=== PATIENT | female | born 2000 | race Caucasian/White ===

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

== ENCOUNTER 2023-03-20 11:08 | Emergency (ER) | payer SELFPAY ==
--- NOTE | ~2023-03-20 | US_ITS ---
Pelvic ultrasound. Clinical History: Vaginal bleeding Technique: Realtime transabdominal and transvaginal scanning of the pelvis was performed. Color flow Doppler and Doppler spectral analysis were performed. Findings: The uterus is anteverted. The endometrial stripe has a thickness of 4 mm. No focal mass is identified. The right ovary measures 2.9 x 1.0 x 1.2 cm. No significant right ovarian or adnexal mass is seen. The left ovary measures 1.7 x 1.4 x 1.6 cm. No significant left ovarian or adnexal mass is seen. There is no evidence of free fluid in the cul de sac. Impression: Unremarkable pelvic ultrasound. Reviewed, dictated and finalized at location . Impression: Unremarkable pelvic ultrasound.
[2023-03-20 11:10] VITALS: BP 116/67; PULSE 81; RESP 16; TEMP 37.3; O2SAT 100
[2023-03-20 11:29] LABS: Basophils Absolute Auto 0.1 K/mm3 (0.0-0.1); Basophils Percent Auto 0.8 % (0.2-1.2); Eosinophils Absolute Auto 0.2 K/mm3 (0-0.3); Eosinophils Percent Auto 2.4 % (0-4.4); Hematocrit 46.8 % (37.0-47.0); Hemoglobin 15.5 g/dL (12.0-15.0); Immature Granulocyte Absolute 0.02 K/mm3 (0.00-0.031); Immature Granulocyte Percent A 0.2 % (0-0.5); Lymphocytes Absolute Auto 2.67 K/mm3 (0.9-3.2); Lymphocytes Percent Auto 27.4 % (18.3-44.2); Mean Corpuscular HGB Conc 33.1 g/dl (32-36); Mean Corpuscular Hemoglobin 32.4 pg (26-34); Mean Corpuscular Volume 97.9 fl (80-100); Mean Platelet Volume 10.8 fl (7.4-10.4); Monocytes Absolute Auto 0.6 K/mm3 (0.1-0.6); Monocytes Percent Auto 6.2 % (2.6-8.5); Neutrophils Absolute Auto 6.1 K/mm3 (1.3-6.7); Platelet Count Result 179 k/mm3 (150-375); Red Blood Count 4.78 M/mm3 (4.2-5.4); Red Cell Distribution Width 12.1 % (11.5-14.5); White Blood Count 9.7 K/mm3 (4.5-10.0)
[2023-03-20 11:39] LABS: Appearance Urine Slightly Cloudy (Clear); Bilirubin Urine 1+ (Negative); Blood Urine 3+ (Negative); Glucose Urine UA Negative (Negative); Ketones Urine 1+ mg/dL (Negative); Leukocyte Esterase Ur Negative LEU/UL (Negative); Nitrate Urine Negative (Negative); Protein Urine 2+ mg/dL (Negative); Specific Grav Ur >= 1.030 (1.001-1.035)
[2023-03-20 11:43] LABS: Bacteria Urine Rare /hpf; Non Pathogenic Casts 0-2; RBC Urine >100 /hpf (0-2); Squamous Epithelial Cell Urine Moderate /hpf (Few)
[2023-03-20 11:55] LABS: Color Urine Dark Yellow (Yellow)
[2023-03-20 11:56] LABS: Add Urine Microscopic? YES
--- NOTE | 2023-03-20 13:22 | ED.FEMALEGU ---
HPI - Female Genitourinary General Chief complaint: Vaginal Bleeding Stated complaint: vaginal bleeding Time Seen by Provider: 03/20/23 12:57 History of Present Illness HPI Narrative: Patient is a 23-year-old female with vaginal bleeding. Patient states that she used to get the Depo shot and stopped approximately 3-4 months ago. She states that she has had some vaginal bleeding for the last 1.5 months. She notes that it is pretty stable in heaviness and she uses panty liners, using about 10 panty liners a day. She denies any abdominal pain, pelvic pain, trauma. She states that she has no concern for STD and has had no vaginal discharge. She has 1 sexual partner, has regular condom use. She has had 1 prior Pap smear which was normal. She states that today she went to [facility] and asked for an appointment and they referred her here in the emergency department. She denies any dizziness, lightheadedness, chest pain, shortness of breath. She denies any urinary symptoms. Related Data Home Medications Medication Instructions Recorded Confirmed medroxyprogesterone 150 mg/mL mg IM 12/24/20 intramuscular suspension Allergies Allergy/AdvReac Type Severity Reaction Status Date / Time No Known Allergies Allergy Verified 03/20/23 11:10 Review of Systems Review of Systems: All systems reviewed & are unremarkable except as noted in HPI and below PMFSH Past Medical History Medical History No active medical problems Family History Family History Other Diabetes mellitus Social History Social History (Updated 12/24/20 @ 11:59 by Maribel Mancera, JENNIFER) Smoking status: Current every day smoker Tobacco type: e-cigarettes/vaping Alcohol intake: never Exam Narrative: GENERAL: Well-appearing, well-nourished, and in no acute distress. HEAD: Normocephalic, atraumatic. EYES: PERRLA and EOMI. ENT: Nares clear. Mucous membranes moist. NECK: Supple. CHEST: Clear to auscultation. No respiratory distress. HEART: Regular rate and rhythm. Normal peripheral pulses. ABDOMEN: Soft, nontender, nondistended. : deferred EXTREMITIES: Normal range of motion. No edema. SKIN: Warm, dry, no rash. NEURO: No focal deficits. Alert and oriented x3. PSYCH: Normal mood and affect. Course Course Emergency Course: Chart review performed. Patient here with vaginal bleeding x2 months. Triage vitals normal. Bedside test negative. Triage workup reviewed, hemoglobin normal at 15.5, no leukocytosis. Urine rbc's greater than 100, urine white blood cells 11-20, no nitrates, leukocytes, bacteria. Believe this is likely noninfectious in due to the blood in her specimen. Patient seen evaluated, nontoxic appearing. Will do a transvaginal ultrasound to evaluate for any uterine or ovarian abnormalities. Patient is hemodynamically stable with a stable hemoglobin. I did offer a pelvic exam with STD testing, she has no concerns and deferred this exam at this time. Anticipate discharge after ultrasound. Negative pelvic ultrasound. Advised follow up with her OBGYN. The results of pertinent diagnostic studies and exam findings were discussed. The patient?s provisional diagnosis and plan of care were discussed with the patient and present family. The patient and/or present family expressed understanding of the diagnosis and plan. The nurse was instructed to provide written instructions and appropriate follow-up information. The patient understands their need and responsibility to obtain additional follow-up as instructed. The risks of medications administered and prescribed were discussed with the patient and family present. Vital Signs Vital signs: Vital Signs Temperature 99.1 F 03/20/23 11:10 Pulse Rate 81 03/20/23 11:10 Respiratory Rate 16 03/20/23 11:10 Blood Pressure 116/67
== END 2023-03-20 16:01 | disposition home or self-care (01) ==
PROVIDERS: Emergency Medicine; Emergency Provider Student in an Organized Health Care Education/Training Program
DX: N93.8 Other specified abnormal uterine and vaginal bleeding (principal)
CPT/HCPCS: 36415; 76856; 81001; 81025; 85025; 87077; 87086; 87088; 99284

== ENCOUNTER 2023-05-05 12:52 | Emergency (ER) | payer SELFPAY ==
[2023-05-05 13:03] VITALS: BP 112/63; PULSE 118; RESP 20; TEMP 36.6; O2SAT 100
[2023-05-05 15:54] VITALS: BP 106/59; PULSE 87; RESP 18; O2SAT 98
--- NOTE | 2023-05-05 16:21 | ED.EYEPROB ---
HPI - Eye Problem General Chief complaint: Eye Problems Stated complaint: eye swelling Time Seen by Provider: 05/05/23 15:53 History of Present Illness HPI Narrative: patient is a 23-year-old female presenting with right eye swelling. States that she initially thought she had pinkeye as the eye was red and watery. States that she woke up with some crusting. Today the skin around the eye is swollen so she became concerned. States that most of the pain is in the swollen skin underneath her eye. Denies difficulty with EOMI. Does not use contacts. Uses prescription glasses. states difficult to see out of the right eye due to the swelling. Related Data Home Medications Medication Instructions Recorded Confirmed medroxyprogesterone 150 mg/mL mg IM 12/24/20 intramuscular suspension Allergies Allergy/AdvReac Type Severity Reaction Status Date / Time No Known Allergies Allergy Verified 05/05/23 12:55 Review of Systems Review of Systems: All systems reviewed & are unremarkable except as noted in HPI and below PMFSH Past Medical History Medical History No active medical problems Family History Family History Other Diabetes mellitus Social History Social History Smoking status: Current every day smoker Tobacco type: e-cigarettes/vaping Alcohol intake: never Exam Narrative: GENERAL: Well-appearing, In acute distress, pleasant cooperative HEAD: Normocephalic, atraumatic. EYES: PERRLA and EOMI. right eye with periorbital edema, normal conjunctiva, no drainage, no pain with EOMI ENT: Mucous membranes moist. NECK: Supple. CHEST: No respiratory distress. HEART: Regular rate and rhythm. EXTREMITIES: Normal range of motion. SKIN: Warm, dry NEURO: Alert and oriented x3. PSYCH: Normal mood and affect. Course Vital Signs Vital signs: Vital Signs Temperature 97.8 F 05/05/23 13:03 Pulse Rate 118 H 05/05/23 13:03 Respiratory Rate 20 05/05/23 13:03 Blood Pressure 112/63 05/05/23 13:03 Pulse Oximetry 100 05/05/23 13:03 Temperature 97.8 F 05/05/23 13:03 Pulse Rate 87 05/05/23 15:54 Respiratory Rate 18 05/05/23 15:54 Blood Pressure 106/59 L 05/05/23 15:54 Pulse Oximetry 98 05/05/23 15:54 MDM - Eye Problem MDM Narrative Medical decision making narrative: 23-year-old female presenting with painful swelling around her right eye. Vitals are stable. Exam remarkable for the above. Concern for periorbital cellulitis. Visual acuity is intact. Patient given a dose of Bactrim and Augmentin. I do not think this represents orbital cellulitis at this time. Discussed strict return precautions and very close follow-up. Appropriate supportive care discussed. Patient voiced understanding and is agreeable with plan. Discharged in stable condition. Differential Diagnosis Differential diagnosis: Likely conjunctivitis and periorbital cellulitis Medical Records Attestation: I reviewed the patient's medical records. Critical Care Time Critical Care Time Critical Care Time: No Discharge Plan Discharge Clinical Impression: Periorbital cellulitis Patient Disposition: Home, Self-Care Condition: Stable Instructions: Antibiotic Form, Periorbital Cellulitis (ED) Additional Instructions: We are treating you with antibiotics for an infection of the skin around the right eye. Please complete these as prescribed. Please follow-up within 2-3 days with primary care and/or ophthalmology. If your symptoms worsen, you develop difficulty moving your eye, fevers, or other concerning symptoms arise, please return to the ER. [facility] Ophthalmology: [phone] Prescriptions: New sulfamethoxazole-trimethoprim [Bactrim DS] 800-160 mg tablet 1 tablet PO Q12H 7 Days Qty: 14 0RF amoxicill
[2023-05-05] MEDS: AMOXICILLIN/CLAVULANATE K 875-125 MG TAB 1 TABLET PO (16:32)
[2023-05-05] MEDS: SULFAMETHOXAZOLE/TRIMETHOPRIM 800/160 MG DS TABLET 1 TAB PO (16:32)
[2023-05-05] MEDS: ACETAMINOPHEN 500 MG TABLET 1000 MG PO (16:32)
[2023-05-05] MEDS: ONDANSETRON HCL ODT 4 MG TABLET PO (17:18)
== END 2023-05-05 17:40 | disposition home or self-care (01) ==
PROVIDERS: Emergency Provider Emergency Medicine
DX: L03.213 Periorbital cellulitis (principal); F17.290 Nicotine dependence, other tobacco product, uncomplicated
CPT/HCPCS: 99283; A9270

== ENCOUNTER 2024-01-12 10:27 | Emergency (ER) | payer SELFPAY ==
--- NOTE | 2024-01-12 10:36 | ED.FEMALEGU ---
HPI - Female Genitourinary General Chief complaint: Urogenital-Female Stated complaint: UTI Time Seen by Provider: 01/12/24 10:38 Source: patient and RN notes reviewed Mode of arrival: ambulatory Limitations: no limitations History of Present Illness HPI Narrative: 23-year-old female presented for complaint of burning with urination, frequency and urgency over the past few days. Endorses history UTIs visits with similar. Has not taken anything [id number] for symptoms. LMP is 12/19/2023. Denies concern for STD but states she would like testing at this time. Denies hematuria, nausea, vomiting, abdominal pain, flank pain, constipation, diarrhea, vaginal discharge, fevers or chills. Related Data Home Medications Medication Instructions Recorded Confirmed medroxyprogesterone 150 mg/mL 150 mg IM DIRECTED 12/24/20 01/12/24 intramuscular suspension Allergies Allergy/AdvReac Type Severity Reaction Status Date / Time No Known Allergies Allergy Verified 01/12/24 10:34 Review of Systems Review of Systems: CONSTITUTIONAL: Denies body aches, fever, chills, or sweats. CARDIOVASCULAR: Denies chest pain, palpitations, or edema. RESPIRATORY: Denies cough or dyspnea. GASTROINTESTINAL: Denies abdominal pain, nausea, vomiting, or diarrhea. GENITOURINARY: Reports dysuria, frequency, urgency, denies hematuria, flank pain SKIN: Denies rash, itching, or wounds. MUSCULOSKELETAL: Denies back pain or myalgia. [facility] Past Medical History Medical History No active medical problems Family History Family History Other Diabetes mellitus Social History Social History Smoking status: Current every day smoker Tobacco type: e-cigarettes/vaping Alcohol intake: never Comments At time of signature, I have reviewed and agree with nursing past medical, surgical, social and family history unless otherwise noted. Please see nursing chart for further information. There is no relevant family history pertinent to the presenting complaint Exam Narrative: GENERAL: Well-appearing ENT: Mucous membranes pink and moist. NECK: Normal AROM. Supple. CHEST: No respiratory distress. Clear to auscultation. HEART: Regular rate and rhythm. ABDOMEN: Soft, nondistended, normal active bowel sounds. Mild RLQ tender with palpation and right lower stringer machine tender with palpation. SKIN: Warm, dry NEURO: No focal deficits. Alert and oriented x3. Gait steady. PSYCH: Normal affect. Course Course Emergency Course: Patient is aware of diagnosis, understands and agrees to treatment plan. Anticipatory guidance given. Patient agrees to follow-up as directed and is aware of reasons to seek care at the emergency department. Portions of this record may have been created with voice recognition software Level of Care: Express Care Visit Vital Signs Vital signs: Vital Signs Temperature 98.5 F 01/12/24 10:37 Pulse Rate 85 01/12/24 10:37 Respiratory Rate 16 01/12/24 10:37 Blood Pressure 122/63 01/12/24 10:37 Pulse Oximetry 100 01/12/24 10:37 Oxygen Delivery Room Air 01/12/24 10:37 Temperature 98.5 F 01/12/24 10:37 Pulse Rate 85 01/12/24 10:37 Respiratory Rate 16 01/12/24 10:37 Blood Pressure 122/63 01/12/24 10:37 Pulse Oximetry 100 01/12/24 10:37 Oxygen Delivery Room Air 01/12/24 10:37 Reviewed MDM - Female Genitourinary MDM Narrative Medical decision making narrative: Patient presenting with concern for UTI and would like testing for STD though she denies specific concerns. Urine specimen collected for UA, GC, chlamydia, trich. Informed Pt will be contacted w/ results when they become available if they are positive. Discussed with patient that it takes up to 7 days for results of cultures to be released and explained
[2024-01-12 10:37] VITALS: BP 122/63; PULSE 85; RESP 16; TEMP 36.9; O2SAT 100
[2024-01-12 11:04] LABS: EDUAAPPEAR Clear; EDUABILI Negative; EDUABLOOD 1+; EDUACOLOR1 Yellow; EDUAGLUCOSE Negative; EDUAKETONE 2+; EDUALEUKO Negative; EDUANITRATE Negative; EDUAPROTEIN 1+
[2024-01-12 11:06] LABS: BEDSIDEPREGUCG Negative
[2024-01-13 18:52] LABS: Trichomonas Vag PCR NOT DETECTED (NOT DETECTE)
[2024-01-13 20:10] LABS: Chlamydia trachomatis NOT DETECTED (NOT DETECTE); Neisseria gonorrhoeae PCR NOT DETECTED (NOT DETECTE)
== END 2024-01-12 11:10 | disposition home or self-care (01) ==
PROVIDERS: Emergency Provider Nurse Practitioner Family
DX: R30.0 Dysuria (principal); B96.89 Other specified bacterial agents as the cause of diseases classified elsewhere; F17.290 Nicotine dependence, other tobacco product, uncomplicated
CPT/HCPCS: 81003; 81025; 87077; 87086; 87088; 87186; 87491; 87591; 87661; 99214; G0463

== ENCOUNTER 2024-02-19 08:36 | Emergency (ER) | payer SELFPAY ==
[2024-02-19 08:41] VITALS: BP 121/73; PULSE 88; RESP 16; TEMP 36.7; O2SAT 100
--- NOTE | 2024-02-19 08:45 | ED.EAR ---
HPI - Ear Problem General Chief complaint: Ear Stated complaint: RT Ear Pain Time Seen by Provider: 02/19/24 08:44 Source: patient and RN notes reviewed Mode of arrival: ambulatory Limitations: no limitations History of Present Illness HPI Narrative: 23-year-old female presents concern for right ear pain for 1 month, worsening over the past week. She denies upper respiratory symptoms. She reports she used ear wax removal kit yesterday without relief. MD Complaint: ear pain Related Data Home Medications Medication Instructions Recorded Confirmed No Home Medications 02/19/24 02/19/24 Allergies Allergy/AdvReac Type Severity Reaction Status Date / Time No Known Allergies Allergy Verified 02/19/24 08:38 Review of Systems Review of Systems: CONSTITUTIONAL: Denies malaise, chills, sweats, or fever. EYES: Denies visual changes, redness, or discharge. ENT: Denies rhinorrhea, congestion, sinus pain, and sore throat. Reports right ear pain CARDIOVASCULAR: Denies chest pain, palpitations, or edema. RESPIRATORY: Denies cough. Denies dyspnea. GASTROINTESTINAL: Denies abdominal pain, nausea, vomiting, diarrhea SKIN: Denies rash or itching. MUSCULOSKELETAL: Denies myalgia. NEUROLOGIC: Denies headache. All systems reviewed & are unremarkable except as noted in HPI and below PMFSH Past Medical History Medical History No active medical problems Family History Family History Other Diabetes mellitus Social History Social History Smoking status: Current every day smoker Tobacco type: e-cigarettes/vaping Alcohol intake: never Comments At time of signature, agree with nursing past medical, surgical, social and family history. There is no relevant family history pertinent to the presenting complaint Exam Narrative: GENERAL: Well-appearing, well-nourished, and in no acute distress. HEAD: Normocephalic EYES: PERRLA, conjunctivae clear ENT: Nares clear. Mucous membranes moist. TM pearly chavez with sharp light reflex on the left, not visible on the right due to excess cerumen; right tragal tenderness. Oropharynx not erythematous without lesions. Tonsils not enlarged and without exudate, no drooling, no hoarseness, no trismus, uvula midline. NECK: Supple. No lymphadenopathy CHEST: Clear to auscultation, breath sounds equal. No wheezing, rhonchi, rales, or stridor. No respiratory distress, speaks in full sentences. HEART: Regular rate and rhythm. No murmur heard. SKIN: Warm, dry, no rash. NEURO: Alert and oriented x3. PSYCH: Normal mood and affect Course Course Emergency Course: Patient is aware of diagnosis, understands and agrees to treatment plan. Anticipatory guidance given. Patient agrees to follow-up as directed and is aware of reasons to seek care at the emergency department. Portions of this record may have been created with voice recognition software Level of Care: Express Care Visit Vital Signs Vital signs: Vital Signs Temperature 98.1 F 02/19/24 08:41 Pulse Rate 88 02/19/24 08:41 Respiratory Rate 16 02/19/24 08:41 Blood Pressure 121/73 02/19/24 08:41 Pulse Oximetry 100 02/19/24 08:41 Oxygen Delivery Room Air 02/19/24 08:41 Temperature 98.1 F 02/19/24 08:41 Pulse Rate 88 02/19/24 08:41 Respiratory Rate 16 02/19/24 08:41 Blood Pressure 121/73 02/19/24 08:41 Pulse Oximetry 100 02/19/24 08:41 Oxygen Delivery Room Air 02/19/24 08:41 Reviewed. Procedures Ear Wax Removal Right Ear: Ear Wax Removal Date: 02/19/24 Ear Wax Removal Time: 08:56 Cerumenolytic Used: other (hydrogen peroxide) Results: Re-examined: cerumen removed completely TM Examination: TM(s) intact, normal appearance Ear Canal Exam: atraumatic Patient Tolerated Procedure: well
== END 2024-02-19 10:13 | disposition home or self-care (01) ==
PROVIDERS: Emergency Provider Nurse Practitioner
DX: H61.21 Impacted cerumen, right ear (principal); F17.290 Nicotine dependence, other tobacco product, uncomplicated
CPT/HCPCS: 69210; 99212; A9270; G0463

== ENCOUNTER 2024-08-23 17:48 | Emergency (ER) | payer OTHER, SELFPAY ==
[2024-08-23 17:58] VITALS: BP 138/65; PULSE 99; RESP 20; TEMP 37.5; O2SAT 100
--- NOTE | 2024-08-23 18:04 | ED.URI ---
HPI - URI/Sore Throat General Chief Complaint: Upper Respiratory Infection Stated Complaint: Sore Throat Time Seen by Provider: 08/23/24 18:04 Source: patient Mode of arrival: ambulatory Limitations: no limitations History of Present Illness HPI Narrative: 24-year-old female presents with complaint of sore throat, congestion, cough for 2-3 days. Afebrile. Cough is mild. Taking Tylenol to treat pain. Patient concern for strep throat. No chest pain or shortness of breath. Denies nausea vomiting diarrhea. All systems reviewed and negative except as noted above. Related Data Home Medications ?Medication ?Instructions ?Recorded ?Confirmed ?Last Taken ?Type No Home Medications 02/19/24 02/19/24 Unknown History Allergies Allergy/AdvReac Type Severity Reaction Status Date / Time No Known Allergies Allergy Verified 08/23/24 18:04 Review of Systems Review of Systems: CONSTITUTIONAL: Denies fever, chills, or sweats. EYES: Denies visual changes, redness, or discharge. ENT: Reports rhinorrhea, congestion, sore throat. Denies otalgia. CARDIOVASCULAR: Denies chest pain, palpitations, or edema. RESPIRATORY: reports cough . Denies dyspnea. GASTROINTESTINAL: Denies abdominal pain, nausea, vomiting, or diarrhea. GENITOURINARY: Denies dysuria or hematuria. SKIN: Denies rash or itching. MUSCULOSKELETAL: Denies back pain, joint pain, or myalgia. NEUROLOGIC: Denies headache, numbness, or weakness. PSYCHIATRIC: Denies anxiety or depression. All other systems reviewed are negative, except as documented in HPI. PMFSH Past Medical History Medical History No active medical problems Family History Family History Other Diabetes mellitus Social History Social History Smoking status: Current every day smoker Tobacco type: e-cigarettes/vaping Alcohol intake: never Comments At time of signature, agree with nursing past medical, surgical, social and family history. There is no relevant family history pertinent to the presenting complaint. Exam Narrative: GENERAL: This is a well-nourished, well-developed patient, in no apparent distress. HEAD: normocephalic, atraumatic. EYES: PERRL. Sclera clear/white. Vision is grossly intact. EARS: External ears normal, auditory canals clear and without drainage, TMs normal without perforation. Hearing grossly intact. NOSE: External nose normal with clear nasal drainage THROAT: Mucous membranes moist, posterior pharynx clear. NECK: Neck supple, non-tender without lymphadenopathy, masses or thyromegaly. CARDIOVASCULAR: Regular rate and rhythm without murmurs, gallops, or rubs. RESPIRATORY: Clear to auscultation. Breath sounds equal bilaterally. No wheezes, rales, or rhonchi. SKIN: warm, Dry, intact with no suspicious lesions or rash, good texture and turgor. NEURO: awake, alert, and oriented to person, place and time. There were no obvious focal neurologic abnormalities. EXTREMITIES: No joint tenderness, effusion, or edema noted. Course Course Level of Care: Express Care Visit Vital Signs Vital signs: Vital Signs Temperature 37.5 C 08/23/24 17:58 Pulse Rate 99 08/23/24 17:58 Respiratory Rate 20 08/23/24 17:58 Blood Pressure 138/65 08/23/24 17:58 Pulse Oximetry 100 08/23/24 17:58 Oxygen Delivery Room Air 08/23/24 17:58 Temperature 37.5 C 08/23/24 17:58 Pulse Rate 99 08/23/24 17:58 Respiratory Rate 20 08/23/24 17:58 Blood Pressure 138/65 08/23/24 17:58 Pulse Oximetry 100 08/23/24 17:58 Oxygen Delivery Room Air 08/23/24 17:58 reviewed MDM - URI/Sore Throat MDM Narrative Medical decision making narrative: negative COVID, strep and influenza. Patient is well-appearing. Lungs clear to auscultation. Recommend [id number] medications to treat symptoms. Please be advised this is a medical document. It is intended for [id number] communication. It is written in medical language and may contain unfamiliar abbreviations or verbiage. Medical documents are intended to carry relevant information, facts as evident, and the clinical opinion of the practitioner at the time of the encounter. This report may have been done utilizing a voice recognition system. Attempts have been made to correct errors. However, there may be uncorrected grammatical, spelling, and recognition errors present. The file time of this note does not necessarily represent the time of service. Differential Diagnosis Differential diagnosis: Likely upper respiratory infection, sinusitis and viral infection Discharge Plan Discharge Clinical Impression: Upper respiratory infection, viral Patient Disposition: Home, Self-Care Condition: Stable Instructions: Upper Respiratory Infection (ED) Additional Instructions: your COVID, influenza strep test were negative today. Your symptoms are viral and may last 10-14 days. taking [id number] medication to treat her symptoms such as DayQuil NyQuil cold and Sinus. Drink plenty water and rest. See your doctor if symptoms are not improving. Patient Language: Greek Prescriptions: No Action No Home Medications Follow-up/Referrals: PHYSICIAN,[facility] [Primary Care Provider] - Time of Disposition: 18:29
[2024-08-23 18:47] LABS: EDCOVIDSCREEN Negative (Negative); EDINFLUASCREEN Negative (Negative); EDINFLUBSCREEN Negative (Negative); EDSTREPNEGPOS1 Negative (Negative)
== END 2024-08-23 18:41 | disposition home or self-care (01) ==
PROVIDERS: Emergency Provider Nurse Practitioner Family
DX: J06.9 Acute upper respiratory infection, unspecified (principal); Z20.822 Contact with and (suspected) exposure to COVID-19; F17.290 Nicotine dependence, other tobacco product, uncomplicated
CPT/HCPCS: 87081; 87426; 87804; 87880; 99213; G0463

== ENCOUNTER 2024-11-19 10:58 | Emergency (ER) | payer OTHER, SELFPAY ==
[2024-11-19 11:05] VITALS: BP 115/64; PULSE 83; RESP 20; TEMP 36.7; O2SAT 100
[2024-11-19 11:12] LABS: EDUAAPPEAR Clear; EDUABILI Negative (Negative); EDUABLOOD Negative (Negative); EDUACOLOR1 Yellow; EDUAGLUCOSE Negative (Negative); EDUAKETONE Negative (Negative); EDUALEUKO 1+ (Negative); EDUANITRATE Negative (Negative); EDUAPROTEIN Negative (Negative); EDUASPGRAVITY 1.015; EDUAUROBILI 0.2
--- NOTE | 2024-11-19 11:19 | ED.FEMALEGU ---
HPI - Female Genitourinary General Chief complaint: Urogenital-Female Stated complaint: UTI Time Seen by Provider: 11/19/24 11:14 Source: patient and RN notes reviewed Mode of arrival: ambulatory Limitations: no limitations History of Present Illness HPI Narrative: Patient presents today with 3 day history of dysuria, frequency, cloudy urine, mild low back pain. Denies hematuria or fever. She has been taking Tylenol and ibuprofen with mild relief. No recent antibiotic use. History of UTI. Related Data Allergies Allergy/AdvReac Type Severity Reaction Status Date / Time No Known Allergies Allergy Verified 11/19/24 11:09 Review of Systems Review of Systems: CONSTITUTIONAL: Denies body aches, fever, chills, or sweats. EYES: Denies visual changes, redness, or discharge. ENT: Denies rhinorrhea, congestion, sore throat, or otalgia. CARDIOVASCULAR: Denies chest pain, palpitations, or edema. RESPIRATORY: Denies cough or dyspnea. GASTROINTESTINAL: Denies abdominal pain, nausea, vomiting, or diarrhea. GENITOURINARY: + dysuria frequency, cloudy urine SKIN: Denies rash, itching, or wounds. MUSCULOSKELETAL: Denies joint pain, or myalgia.+ low back pain NEUROLOGIC: Denies headache, numbness, tingling, or weakness. PSYCH: Denies depression or anxiety. PMFSH Past Medical History Medical History (Reviewed 11/19/24 @ 11:20 by Summer Mcdonald, [facility], ) No active medical problems Family History Family History (Reviewed 11/19/24 @ 11:20 by Summer Mcdonald, [facility], ) Other Diabetes mellitus Social History Social History (Reviewed 11/19/24 @ 11:20 by Summer Mcdonald, [facility], ) Smoking status: Current every day smoker Tobacco type: e-cigarettes/vaping Alcohol intake: never Comments At time of signature, I have reviewed and agree with nursing past medical, surgical, social and family history unless otherwise noted. Please see nursing chart for further information. There is no relevant family history pertinent to the presenting complaint Exam Narrative: GENERAL: Well-appearing, well-nourished, and in no acute distress. HEAD: Normocephalic, atraumatic. EYES: EOMI. No redness or drainage. Conjunctivae normal. ENT: Mucous membranes pink and moist. NECK: Normal AROM. CHEST: No respiratory distress. Clear to auscultation. HEART: Regular rate and rhythm. No murmur appreciated. ABDOMEN: Soft, nontender, nondistended, normal active bowel sounds. -CVAT MUSCULOSKELETAL: No bony tenderness. EXTREMITIES: Normal range of motion. No edema. SKIN: Warm, dry, no rash. Capillary refill normal. Normal skin turgor. NEURO: No focal deficits. Alert and oriented x3. Gait steady. PSYCH: Normal affect. No signs of depression or anxiety. Course Course Level of Care: Express Care Visit Vital Signs Vital signs: Vital Signs Temperature 98.1 F 11/19/24 11:05 Pulse Rate 83 11/19/24 11:05 Respiratory Rate 20 11/19/24 11:05 Blood Pressure 115/64 11/19/24 11:05 Pulse Oximetry 100 11/19/24 11:05 Oxygen Delivery Room Air 11/19/24 11:05 Temperature 98.1 F 11/19/24 11:05 Pulse Rate 83 11/19/24 11:05 Respiratory Rate 20 11/19/24 11:05 Blood Pressure 115/64 11/19/24 11:05 Pulse Oximetry 100 11/19/24 11:05 Oxygen Delivery Room Air 11/19/24 11:05 Reviewed MDM - Female Genitourinary MDM Narrative Medical decision making narrative: Urinalysis shows 1+ leukocyte esterase. Culture pending. Patient will be started on a course of Augmentin for presumed UTI. Anticipatory guidance given. Differential Diagnosis Differential diagnosis: Likely urinary tract infection, vaginitis, cystitis and other (Pyelonephritis) Lab Data Attestation: I reviewed the patient's lab results. Labs: Lab Results 11/19/24 Range/Units 11:07 POC Urine Color Yellow POC Urine Clarity Clear POC Urine pH 7.0 POC Ur Specif [place] 1.015 POC Urine Protein Negative (Negative) POC Ur Glucose (UA) Negative (Negative) POC Urine Ketones Negative (Negative) POC Urine Blood Negative (Negative) POC Urine Nitrite Negative (Negative) POC Urine Bilirubin Negative (Negative) POC Urine Urobilinogen 0.2 POC U Leukocyte Esteras 1+ (Negative) Critical Care Time Critical Care Time Critical Care Time: No Discharge Plan Discharge Clinical Impression: Urinary tract infection Qualifiers: Urinary tract infection type: acute cystitis Hematuria presence: without hematuria Qualified Code(s): N30.00 - Acute cystitis without hematuria Patient Disposition: Home Condition: Stable Instructions: Antibiotic Form, Urinary Tract Infection in Women (DC) Additional Instructions: Your urine shows infection today. Take Augmentin as prescribed until gone. Your urine will be sent of for a culture to identify what type of bacteria is causing your infection. If the culture shows that your medication will not get rid of your infection, you will be notified and a new antibiotic will be called in for you. If your symptoms worsen to include fever, sweats, chills, nausea, vomiting, severe abdominal or back pain, please go to the ER for further evaluation. Patient Language: Serbian Prescriptions: New amoxicillin-pot clavulanate 875-125 mg tablet 1 tablet PO Q12H 7 Days Qty: 14 0RF Follow-up/Referrals: PHYSICIAN,[facility] OPERATOR [Primary Care Provider] - Stand Alone Forms: Work/School Release IP Time of Disposition: 11:22
== END 2024-11-19 11:26 | disposition home or self-care (01) ==
PROVIDERS: Emergency Provider Nurse Practitioner
DX: N30.00 Acute cystitis without hematuria (principal); F17.290 Nicotine dependence, other tobacco product, uncomplicated
CPT/HCPCS: 81003; 87077; 87086; 87186; 99213; G0463

== ENCOUNTER 2024-12-19 09:09 | Emergency (ER) | payer OTHER, SELFPAY ==
--- OUTSIDE RECORDS SUMMARY | 2024-12-19 09:11 | XMS_ITS | Clinical Summary ---
Author Organization [facility] Address [address] [place] [address] Care Team Providers Care Tourist Information Officer Name Role Phone Cydney Perez MD Primary Care Provider [phone] [phone] Allergies No known active allergies Medications cyclobenzaprine (FLEXERIL) 10 mg tablet Take 1 tablet (10 mg total) by mouth 2 (two) times a day as needed for muscle spasms 20 tablet 09/30/2024 Active ibuprofen (ADVIL,MOTRIN) 800 mg tablet Take 1 tablet (800 mg total) by mouth 3 (three) times a day 21 tablet 09/30/2024 Active Active Problems Problem Noted Date Diagnosed Date Family history of type 1 diabetes mellitus 10/16 Assessment & Plan (10/16/2024 8:54 PM CDT): Type 1 diabetes may contribute to inability to gain weight. Presentation in young adulthood less common but can not be ruled out. Check A1c. 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 No red flag symptoms including acute neurological deficit, changes in vision, or syncope. - Continue Tylenol p.r.n. - Maintain adequate oral hydration - Gradually decrease caffeine consumption, maintain steady state Low weight 10/16/2024 Assessment & Plan (10/16/2024 8:52 PM CDT): BMI 18, chronic. No recent weight loss. Patient denies intentionally restricting food, although she does endorse missed meals attributed to job. Also endorses history of type 1 diabetes in grandmother. - Check TSH, A1c, CBC, CMP - Patient counseled on eating 3 balanced meals daily with snacks Abnormal imaging of thyroid 10/16/2024 Assessment & Plan (10/16/2024 8:50 PM CDT): Incidental finding of heterogeneous thyroid on cervical spine CT. Recommend dedicated thyroid ultrasound for further evaluation. Patient does endorse chronic difficulty gaining weight, however denies other systemic symptoms of thyroid abnormalities including fatigue, GI distress, palpitations, and hair loss. - Thyroid ultrasound - TSH with reflex Marijuana use 10/16/2024 Assessment & Plan (10/16/2024 8:48 PM CDT): Patient endorses regular use. - Counseled on risks of smoking marijuana including lung damage, hypoxia, cognitive impairment Vaping nicotine dependence, non-tobacco product 10/16/2024 Assessment & Plan (10/16/2024 8:49 PM CDT): Trying to cut back. Endorses habitual use more than physical dependence. - Counseled on vaping cessation, can consider adjunct therapy for persistent symptoms Encounters Date Type Department Care Team Description 10/20/2024 Results Follow-Up [facility] Primary Care at [address] [place] [phone] Sonia Simmons MA Thyroid Function [place], CBC with auto differential, Comprehensive metabolic panel, Additional followed-up results: 2 10/16/2024 11:30 AM CDT Lab [address] Abnormal imaging of thyroid; Low weight 10/16/2024 10:30 AM CDT Office Visit [facility] Residency Clinic at [address] [place] [phone] Cydney Perez MD Abnormal imaging of thyroid (Primary Dx); Low weight; Episodic tension-type headache, not intractable; Family history of type 1 diabetes mellitus; Vaping nicotine dependence, non-tobacco product; Marijuana use 10/16/2024 Orders Only [facility] Residency Clinic at [address] [place] [address] Cydney Perez MD Abnormal imaging of thyroid (Primary Dx) 10/16/2024 Orders Only [facility] Residency Clinic at [address] [place] [address] Cydney Perez MD Abnormal imaging of thyroid (Primary Dx) 09/30/2024 1:05 PM CDT - 09/30/2024 2:55 PM CDT Emergency [facility] Emergency Department [address] [place] [address] [id number] Cervical strain, acute, initial encounter (Primary Dx); Abnormal imaging of thyroid Discharge Disposition: Discharge to home or self care from Last 3 Months Immunizations Immunization Administration Dates Next Due DTaP 10/01/2006 DTaP, Unspecified 11/30/2004,04/01/2002,01/09/20 02,2001 Hep A, Ped Unspecified 11/14/2006 Hep A, Unspecified 11/30/2004 Hep B, Unspecified 01/08/2002,2001, 001 HiB 04/01/2002,2001 IPV 10/01/2006 MMR 10/01/2006,11/30/2004 Meningococcal MCV4P (Menactra) 01/01/2013 Pneumococcal, Unspecified 11/14/2006,01/08/2002, 2001 Polio, Unspecified 04/01/2002,01/08/2002, 001 Tdap 01/01/2013 Varicella 10/01/2006,04/01/2002 Social History Tobacco Use Types Packs/Day Years Used Date Smoking Tobacco: Every Day Vaping Tobacco Cessation:Ready to Q uit: Not Asked; Counseling Given: Not Answered AUDIT-C Answer Date Recorded Q1: How often do you have a drink containing alcohol? Never 10/16/2024 Q2: How many drinks containi ng alcohol do you have on a typical day when you are drinking? Patient does not drink Q3: How often do you have si x or more drinks on one occasion? Never 10/16/2024 PHQ-2 Answer Date Recorded PHQ-2 Total Score (If total score is 3 or more points, staff should administer the PHQ-9) 0 10/16/2024 Personal Safety Answer Date Recorded Have you ever been in or are you currently in a harmful physical or emotional relationship or is someone making you feel afraid or unsafe? 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[employer] Gender Identity Not on file Sexual Orientation Not on file Obstetrics History Last Filed Vital Signs Vital Sign Reading Time Taken Comments Blood Pressure 98/62 10/16/2024 10:50 AM CDT Pulse 84 10/16/2024 10:50 AM CDT Temperature 36.8 C (98.2 F) 09/30/2024 12:57 PM CDT Respiratory Rate 16 10/16/2024 10:50 AM CDT Oxygen Saturation 98% 10/16/2024 10:50 AM CDT Inhaled Oxygen Concentration - - Weight 43.2 kg (95 lb 3.2 oz) 10/16/2024 10:50 A M CDT Height 154.9 cm (5' 0.98) 10/16/2024 10:50 AM C DT Body Mass Index 18 10/16/2024 10:50 AM CDT Plan of Treatment Health Maintenance Due Date Last Done Comments Cervical Cancer Screening 2001 Hepatitis C Screening 2001 HPV Vaccines (1 - 3-dose series) 2016 Meningococcal B Vaccine (1 o f 2 - Standard) 2017 Regular Well Visit/Exam 18-64 2019 Pneumococcal vaccine <65 (1 of 2 - PCV) 2020 11/14/2006, 01/08/2002, 2001 DTaP/Tdap/Td Vaccine (7 - Td or Tdap) 01/01/2023 01/01/2013, 10/01/2006, 11/30/2004, Additional history exists Influenza Vaccine (Season Ended) 2025 Depression Screening 10/16/2025 10/16/2024 Hepatitis B Screening Completed 01/08/2002 , 2001, 2001 Varicella Vaccines Completed 10/01/2006, 04/01/2002 Procedures Procedure Name Priority Date/Time Associated Diagnosis Comments EGFR Routine 10/16/2024 11:31 AM CDT Low weight DIFFERENTIAL AUTO Routine 10/16/2024 11: 31 AM CDT Low weight COMPREHENSIVE METABOLIC PANEL Routine 10/16/2024 11:31 AM CDT Low weight CBC WITH AUTO DIFFERENTIAL Routine 10/16/2024 11:31 AM CDT Low weight THYROID FUNCTION CASCADE Routine 10/16/2024 11:31 AM CDT Abnormal imaging of thyroid Low weight CT CERVICAL SPINE WO CONTRAST ED 09/30/2024 1:32 PM CDT from Last 3 Months Results * eGFR (10/16/2024 11:31 AM CDT) eGFR >90 >=60 mL/min/1. 73 m2 Comment: Interpretive Data Reference Interval Normal >/= 90 mL/min/1.73m2 Mildly decreased* 60 - 89 mL/min/1.73m2 Mildly to moderately decreased 45 - 59 mL/min/1.73m2 Moderately to severely decreased 30 - 44 mL/min/1.73m2 Severely decreased 15 - 29 mL/min/1.73m2 Kidney Failure < 15 mL/min/1.73m2 *Relative to young adult level Estimated glomerular filtration rate is determined by the 2020 CKD-EPI equation recommended by the National Kidney Foundation (A Unifying Approach to GFR Estimation: Recommendations of the NKF-ASK Task Force on Reassessing the Inclusion of Race in Diagnosing Kidney Disease, JASN 2020). The CKD-EPI equation should not be used for patients with unstable renal function and has not been validated in children and those over 70. Current interpretive data was last reviewed 2021. Blood 10/16/2024 11:3 1 AM CDT 10/16/2024 1:11 PM CDT us Cydney Perez MD LAB BLOOD ORDERABLES Sharri hank Result MAGALIE ARNOLD ([place]) 1 [facility] Department [place] [address] * (ABNORMAL) Differential, auto (10/16/2024 11:31 AM CDT) Neutrophil abs 7.09(H) 1.50 - 6.50 K/cumm Imm gran abs 0.03 0.00 - 0.10 K/cumm [facility] ([place]) Lymphocyte abs 2.76 0.80 - 3.30 K/cumm [facility] ([place]) Monocyte abs 0.77 0.20 - 0.80 K/cumm [facility] ([place]) Eosinophil abs 0.13 0.00 - 0.50 K/cumm [facility] ([place]) Basophil abs 0.09 0.00 - 0.10 K/cumm [facility] ([place]) Neutrophil pct 65.2 % [facility] ([place]) Comment: Interpretive Data Percent cell count reference ranges are not reported, since discordance with absolute values may lead to misinterpretation of CBC data. Current Interpretive Data was last revised on 2017. Imm gran pct 0.3 % [facility] ([place]) Comment: Interpretive Data Percent cell count reference ranges are not reported, since discordance with absolute values may lead to misinterpretation of CBC data. Current Interpretive Data was last revised on 2017. Lymphocyte pct 25.4 % [facility] ([place]) Comment: Interpretive Data Percent cell count reference ranges are not reported, since discordance with absolute values may lead to misinterpretation of CBC data. Current Interpretive Data was last revised on 2017. Monocyte pct 7.1 % [facility] ([place]) Comment: Interpretive Data Percent cell count reference ranges are not reported, since discordance with absolute values may lead to misinterpretation of CBC data. Current Interpretive Data was last revised on 2017. Eosinophil pct 1.2 % [facility] ([place]) Comment: Interpretive Data Percent cell count reference ranges are not reported, since discordance with absolute values may lead to misinterpretation of CBC data. Current Interpretive Data was last revised on 2017. Basophil pct 0.8 % [facility] ([place]) Comment: Interpretive Data Percent cell count reference ranges are not reported, since discordance with absolute values may lead to misinterpretation of CBC data. Current Interpretive Data was last revised on 2017. Blood 10/16/2024 11:3 1 AM CDT 10/16/2024 1:11 PM CDT Cydney Perez MD LAB BLOOD ORDERABLES Sharri l Result Performing Organization Address City/[facility]/ZIP Co de Phone Number MAGALIE ARNOLD ([place]) 1 [facility] [place] [address] * Thyroid Function [place] (10/16/2024 11:31 AM CDT) Pathologist [facility] TSH 0.90 0.30 - 4.20 mcIUnit/mL Blood 10/16/2024 11:3 1 AM CDT 10/16/2024 1:11 PM CDT Cydney Perez MD LAB BLOOD ORDERABLES Sharri l Result Performing Organization Address City/[facility] Co de Phone Number MAGALIE ARNOLD ([place]) 1 [facility] [employer] [place] [address] * (ABNORMAL) CBC with auto differential (10/16/2024 11:31 AM CDT) WBC 10.87(H) 3.80 - 9.90 K/cumm Hgb 15.5 11.9 - 15.5 g/dL [facility] Hct 45.8(H) 35.6 - 45.5 % [facility] ([place]) Plt 205 150 - 400 K/cumm [facility] ([place]) MPV 10.8 9.1 - 12.3 fL [facility] ([place]) RBC 4.71 3.90 - 5.20 M/cumm [facility] ([place]) MCV 97.2(H) 81.3 - 96.4 fL [facility] ([place]) MCH 32.9 27.1 - 33.3 pg [facility] ([place]) MCHC 33.8 32.3 - 35.7 g/dL [facility] ([place]) RDW CV 12.6 11.1 - 14.9 % [facility] ([place]) RDW SD 45.4 35.7 - 48.1 fL [facility] NRBC abs 0.00 0.00 - 0.01 K/cumm [facility] ([place]) Blood 10/16/2024 11:3 1 AM CDT 10/16/2024 1:11 PM CDT us Cydney Perez MD LAB BLOOD ORDERABLES Sharri l Result [facility] ([place]) 1 [facility] Department [place] [address] * (ABNORMAL) Comprehensive metabolic panel (10/16/2024 11:31 AM CDT) Sodium 138 135 - 145 mmol/L Potassium, pl 3.8 3.3 - 4.9 mmol/L [facility] Chloride 99 97 - 110 mmol/L [facility]) CO2 27 22 - 32 mmol/L [facility] ([place]) Anion gap 12 2 - 15 mmol/L [facility] ([place]) BUN 11 6 - 25 mg/dL [facility] Creatinine 0.59(L) 0.60 - 1.10 mg/dL [facility] Glucose 76 70 - 199 mg/dL [facility] Comment: Interpretive Data Fasting glucose >/= 126 mg/dl is diagnostic for diabetes. Fasting is defined as no caloric intake for at least 8 hours. Fasting glucose between 100 mg/dl to 125 mg/dl is diagnostic of prediabetes. In a patient with classic symptoms of hyperglycemia or hyperglycemic crisis, a random glucose >/= 200 mg/dl is diagnostic for diabetes. In the absence of unequivocal hyperglycemia, results should be confirmed by repeat testing. The classification and Diagnosis of Diabetes Diabetes Care 2021; 46: S19-S40. Current interpretive data was last revised 2022. Calcium 9.6 8.5 - 10.3 mg/dL [facility] ([place]) Bilirubin, total 0.4 0.1 - 1.2 mg/dL [facility] ([place]) Protein, pl 7.4 6.5 - 8.5 g/dL [facility] ([place]) Albumin 4.6 3.5 - 5.0 g/dL [facility] ([place]) Alk phos 47 40 - 130 Units/L [facility] ([place]) ALT 15 7 - 45 Units/L [facility] ([place]) AST 30 10 - 45 Units/L [facility] ([place]) Blood 10/16/2024 11:3 1 AM CDT 10/16/2024 1:11 PM CDT us Cydney Perez MD LAB BLOOD ORDERABLES Sharri mckinney Result [facility] ([place]) 1 [facility] Department [place] [address] * CT Cervical Spine WO Contrast (09/30/2024 1:32 PM CDT) Anatomical Region Laterality Modality Spine N/A Computed Tomogra phy 09/30/2024 2:37 PM CDT Narrative 09/30/2024 2:38 PM CDT EXAM DESCRIPTION: CT CERVICAL SPINE WO CONTRAST REASON FOR STUDY: neck pain after fall c/o neck pain that started 2 days ago after tripping over dog TECHNIQUE: Axial images through the cervical spine with sagittal and coronal reformatted images. Automated exposure control was used as a dose optimization technique for this examination. COMPARISON: None FINDINGS: There is no definite evidence of acute fracture or subluxation involving the cervical spine. There is mild reversal of the normal cervical lordotic curvature, which may be related to muscle spasms. There is minimal anterolisthesis of C2 on C3 and C3 on C4, which is likely related to age-related ligamentous laxity. The bilateral bony neural foramina are grossly patent. The atlantoaxial and craniocervical intervals are grossly well maintained. There is a mildly heterogeneous appearance of the thyroid gland. The remainder of the visualized paravertebral soft tissues are grossly unremarkable. There is mild biapical pleural thickening and scarring involving the visualized lung apices. IMPRESSION: No definite evidence of acute fracture or subluxation involving the cervical spine. Mildly heterogeneous appearance of the thyroid gland, which is incompletely evaluated by CT technique. This may be further evaluated with nonemergent thyroid ultrasound as clinically indicated.. THIS IS AN ELECTRONICALLY VERIFIED FINAL REPORT 09/30/2024 2:38 PM - Electronically signed by Mala Ayers D.O. PS: PS Report ID: [id number] Reading Location: [id number] Procedure Note Mala Ayers, DO - 09/30/2024 EXAM DESCRIPTION: CT CERVICAL SPINE WO CONTRAST REASON FOR STUDY: neck pain after fall c/o neck pain that started 2 days ago after tripping over dog TECHNIQUE: Axial images through the cervical spine with sagittal andcoronal reformatted images. Automated exposure control was used as a doseoptimization technique for this examination. COMPARISON: None FINDINGS: There is no definite evidence of acute fracture or subluxation involvingthe cervical spine. There is mild reversal of the normal cervical lordotic curvature, which may be related to muscle spasms. There is minimal anterolisthesis of C2 on C3 and C3 on C4, which is likely related to age-related ligamentous laxity. The bilateral bony neural foramina are grossly patent. The atlantoaxial and craniocervical intervals are grossly well maintained. There is a mildly heterogeneous appearance of thethyroid gland. The remainder of the visualized paravertebral soft tissues aregrossly unremarkable. There is mild biapical pleural thickening and scarring involving the visualized lung apices. IMPRESSION: No definite evidence of acute fracture or subluxation involving thecervical spine. Mildly heterogeneous appearance of the thyroid gland, which isincompletely evaluated by CT technique. This may be further evaluated with nonemergent thyroid ultrasound as clinically indicated.. THIS IS AN ELECTRONICALLY VERIFIED FINAL REPORT 09/30/2024 2:38 PM - Electronically signed by Mala Ayers D.O. PS: PS Report ID: [id number] Reading Location: [id number] Maude VARGAS IMG CT PROCEDURES Sharri mckinney Result from Last 3 Months Insurance [facility] Care Teams Tourist Information Officer Relationship Specialty Start Date End Date Cydney Perez MD 2 [facility] [address] [address] PCP - General Family Medicine 10/16/24
--- OUTSIDE RECORDS SUMMARY | 2024-12-19 09:11 | XMS_ITS | Encounter Summary ---
Author Organization [facility] Healthcare Address [address] [place] [address] Care Team Providers Care Junior Php Developer Name Role Phone Cydney Perez MD Primary Care Provider [phone] Encounter Details Date Type Department Care Team (Latest Contact Info) Description 10/20/2024 Results Follow-Up [facility] Primary Care at [address] [phone] Sonia Simmons MA Thyroid Function [place], CBC with auto differential, Comprehensive metabolic panel, Additional followed-up results: 2 Social History Tobacco Use Types Packs/Day Years Used Date Smoking Tobacco: Every Day Vaping AUDIT-C Answer Date Recorded Q1: How often [...] on file 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
--- OUTSIDE RECORDS SUMMARY | 2024-12-19 09:11 | XMS_ITS | Referral Summary ---
Author Organization [facility] Address [address] [place] [address] Care Team Providers Care Oriental Rug Stretcher Name Role Phone Cydney Perez MD Primary Care Provider [phone] Encounters Date Type Department Care Team Description 10/20/2024 Results Follow-Up [facility] Primary Care at [address] [phone] Sonia Simmons MA Thyroid Function [place], CBC with auto differential, Comprehensive metabolic panel, Additional followed-up results: 2 10/16/2024 Orders Only [facility] Medical [facility] Residency Clinic at [address] [phone] Cydney Perez MD Abnormal imaging of thyroid (Primary Dx) 10/16/2024 Orders Only [facility] Residency Clinic at [address] [phone] Cydney Perez MD Abnormal imaging of thyroid (Primary Dx) 10/16/2024 11:30 AM CDT Lab [address] Abnormal imaging of thyroid; Low weight 10/16/2024 10:30 AM CDT Office Visit [facility] Residency Clinic at [address] [phone] Cydney Perez MD Abnormal imaging of thyroid (Primary Dx); Low weight; Episodic tension-type headache, not intractable; Family history of type 1 diabetes mellitus; Vaping nicotine dependence, non-tobacco product; Marijuana use 09/30/2024 1:05 PM CDT - 09/30/2024 2:55 PM CDT Emergency [facility] Emergency Department [facility] [place] [address] Cervical strain, acute, initial encounter (Primary Dx); Abnormal imaging of thyroid Discharge Disposition: Discharge to home or self care from Last 3 Months Allergies No known active allergies Medications cyclobenzaprine [...] 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 Gender Identity Not on file Sexual Orientation Not on file Last Filed Vital Signs Vital Sign Reading [...] 10/16/2024 10:50 AM CDT Plan of Treatment Not on file Procedures Procedure Name Priority Date/Time Associated Diagnosis [...] LAB BLOOD ORDERABLES Sharri mckinney Result MAGALIE [facility] 1 [facility] [place] [address] * (ABNORMAL) Differential, auto (10/16/2024 11:31 AM [...] LAB BLOOD ORDERABLES Sharri l Result MAGALIE CLAYTON ([place]) 1 [facility] [place] [address] * Thyroid Function [place] (10/16/2024 11:31 AM CDT) TSH 0.90 0.30 - 4.20 mcIUnit/mL Blood 10/16/2024 11:3 1 AM CDT 10/16/2024 1:11 PM CDT Cydney Perez MD LAB BLOOD ORDERABLES Sharri l Result [facility] ([place]) 1 [facility] [place] [address] * (ABNORMAL) CBC with auto differential (10/16/2024 11:31 AM CDT) Pathologist [facility] WBC 10.87(H) 3.80 - 9.90 K/cumm Hgb 15.5 11.9 - 15.5 g/dL [facility] ([place]) Hct 45.8(H) 35.6 - 45.5 [...] RDW SD 45.4 35.7 - 48.1 fL [facility] ([place]) NRBC abs 0.00 0.00 - 0.01 K/cumm [facility] ([place]) Blood 10/16/2024 11:3 1 AM CDT 10/16/2024 1:11 PM CDT us Cydney Perez MD LAB BLOOD ORDERABLES Sharri l Result Performing Organization Address City/[facility]/ZIP Co de Phone Number [facility] ([place]) 1 [facility] [place] [place] [address] * (ABNORMAL) Comprehensive metabolic panel (10/16/2024 11:31 AM CDT) Sodium 138 135 - 145 mmol/L Potassium, pl 3.8 3.3 - 4.9 mmol/L [facility] ([place]) Chloride 99 97 - 110 mmol/L [facility] ([place]) CO2 27 22 - 32 mmol/L [facility] ([place]) Anion gap 12 2 - 15 mmol/L [facility] ([place]) BUN 11 6 - 25 mg/dL [facility] ([place]) Creatinine 0.59(L) 0.60 - 1.10 mg/dL [facility] ([place]) Glucose 76 70 - 199 mg/dL [facility] ([place]) Comment: Interpretive Data Fasting glucose [...] MD LAB BLOOD ORDERABLES Sharri l Result [facility] ([place]) 1 [facility] [place] [address] * CT Cervical Spine WO Contrast (09/30/2024 [...] Mala Ayers D.O. PS: PS Report ID: [id number] Reading Location: [id number] Procedure Note Mala Ayers, DO - 09/30/2024 [...] 2:38 PM - Electronically signed by Mala yAers D.O. PS: PS Report ID: [id number] Reading Location: [place] [address] PROCEDURES Sharri mckinney Result from Last 3 Months Insurance [facility] Member Subscriber Plan / Payer (Ef fective 2023-Present) Name:[employer] Relation to Subscriber:Child Name:DANIEL ANGULO Date of :1978 Address: [address] [place] [address] [place] [address] Payer ID:[id number] (IC) Type:[facility] HMO/PPO Address: [address] [address] [place] [address] Care Teams Oriental Rug Stretcher Relationship Specialty Start Date End Date Cydney Perez MD [address] [facility] [address] [place] [address] [place] [address] PCP - General Family Medicine 10/16/24
[2024-12-19 09:37] VITALS: BP 124/69; PULSE 81; RESP 18; TEMP 36.4; O2SAT 100
[2024-12-19 09:52] LABS: BEDSIDEPREGUCG Negative (Negative)
[2024-12-19 10:02] LABS: Add Urine Microscopic? YES; Appearance Urine Turbid (Clear); Glucose Urine UA Negative (Negative); Leukocyte Esterase Ur 1+ LEU/UL (Negative); Nitrate Urine Negative (Negative); Non Pathogenic Casts 0-2; Specific Grav Ur 1.019 (1.001-1.035)
--- OUTSIDE RECORDS SUMMARY | 2024-12-19 10:43 | XMS_ITS | Clinical Summary ---
Author Organization [facility] [employer] Address [address] [place] [address] Care Team Providers Care Mold Runner Name Role Phone Unavailable Primary Care Provider Unavailabl e Source Comments [facility] [employer],non-owned Affiliates and Associated Physician Practices is amultiple site organization consisting of ambulatory clinics and hospital sitesin [place], [place], [place] and [place]. This disclosure is being madepursuant to the Care Everywhere program and may not contain all information available regarding this patient. Last updated 18.[facility] [employer] Allergies No known active allergies Medications * Be aware that medications may not be up to date on this document. Alwaysverify current medications with the patient. polyethylene glycol 3350 (MIRALAX) packet Take 17 g by mouth once daily 30 packet 2 09/24/2017 Active Active Problems Problem Noted Date Diagnosed Date Unexplained weight loss 09/23/2017 Assessment & Plan (09/24/2017 11:12 AM CDT): Assessment: 17 yo female admits to unintentional weight loss (~7 lbs) over 3 weeks with loss of appetite. Symptoms could be related to current acute illness. Plan: -Monitor strict I/Os -Regular diet Assessment & Plan (09/23/2017 6:53 PM CDT): Assessment: 17 yo female admits to unintentional weight loss (~7 lbs) over 3 weeks with loss of appetite. Symptoms could be related to current acute illness. Plan: -Monitor strict I/Os -Regular diet Gross hematuria 09/23/2017 Assessment & Plan (09/24/2017 12:26 PM CDT): Yue has had several episodes of bright red blood in the urine that clears quickly and associated with dysuria. Labs are essentially normal with Cr 0.57, C3 107, normal CBC. The Renal ultrasound shows some mild pelvicaliectasis but no stones seen. Recommend a urology consult for possible cystoscopy. She appears clinically well and non- toxic. Maybe home later today. Assessment & Plan (09/23/2017 6:57 PM CDT): Assessment: 17 yo female with 1 day of gross hematuria in setting of UTI 2.5 weeks ago s/p treatment with antiobiotics. Differential diagnosis very broad at this point. Glomerular nephropathies including IgA nephropathy and post-strep glomerularnephropathy could be a cause even though patient denies URI symptoms in the last few weeks and C3 complement normal. Other causes includes nephrolithiasis, urinary tract infections (urinalysis not consistent with infection) and maliginacies. Trauma and irritation of meatus are also potential causes although patient denies this. Given patient's presentation including weight loss, she requires admission for further work up and management of symptoms. Plan: -D5 1/2 NS at 100 mL/hr -Regular diet -RFP in AM -Renal ultrasound tomorrow High risk social situation 09/23/2017 Assessment & Plan (09/24/2017 11:12 AM CDT): Assessment: 17 yo female in the process of becoming emancipated from parents. Patient is currently living with friend. Plan: -Social work consulted and following Assessment & Plan (09/23/2017 6:03 PM CDT): Assessment: 17 yo female in the process of becoming emancipated from parents. Patient is currently living with friend. 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 Gender Identity Not on file Sexual Orientation Not on file Last Filed Vital Signs Vital Sign Reading Time Taken Comments Blood Pressure 100/57 01/28/2023 1:00 AM CDT Pulse 77 01/28/2023 1:00 AM CDT Temperature 37.1 C (98.8 F) 01/28/2023 12:39 AM CDT Respiratory Rate 11 01/28/2023 1:00 AM CDT Oxygen Saturation 95% 01/28/2023 1:00 AM CDT Inhaled Oxygen Concentration - - Weight 45.4 kg (100 lb) 01/28/2023 12:39 AM CDT Height 157.5 cm (5' 2) 01/28/2023 12:39 AM CDT Body Mass Index 18.29 01/28/2023 12:39 AM CDT Plan of Treatment Health Maintenance Due Date Last Done Comments HPV VACCINE (1 - 3-dose series) 2016 MENINGOCOCCAL (Group B) VACCINE SHARED DECISION-MAKING (1 of 2 - Standard) 2017 HEPATITIS C SCREENING 03/16/2019 DTAP/TDAP/TD VACCINES (1 - Tdap) 2020 HEPATITIS B VACCINE (1 of 3 - 19+ 3-dose series) 2020 PAP SMEAR 2022 CHLAMYDIA/GONORRHEA SCREENING 12/19/2022, 09/24/2017, 09/23/2017 COVID-19 VACCINE (1 - 2023-2 5 season) 2024 DEPRESSION SCREENING 06/11/2024 INFLUENZA VACCINE (#1) 2025 ZOSTER VACCINE (1 of 2) 2051 HIV SCREENING Completed 09/24/2017 HIB VACCINE Aged Out No longer eligi ble based on patient's age to complete this topic MENINGOCOCCAL GROUPS A/C/Y/W VACCINE Aged Out No longer eligible b ased on patient's age to complete this topic PNEUMOCOCCAL VACCINE Aged Out No long er eligible based on patient's age to complete this topic Procedures Procedure Name Priority Date/Time Associated Diagnosis Comments CHLAMYDIA + GC AMPLIFIED PROBE Routine 09/24/2017 11:52 AM CDT HIV-1 HIV-2 ANTIBODY + HIV P24 AG PANEL Timed 09/24/2017 11:24 AM CDT from Last 3 Months or Most Recently Relevant to Health Maintenance Results * CHLAMYDIA + GC AMPLIFIED PROBE (09/24/2017 11:52 AM CDT) Pathologist [facility] Chlamydia Amplified Probe Negative Negative 09/25/2017 11:[address] [facility] GC Amplified Probe Negative Negative 09/25/2017 11:[address] [facility] Microbiology URINE / Unknown Collection / Unknown 09/24/2017 11:52 AM CDT 09/24/2017 12:[address] [facility] - 09/25/2017 11:23 AM CDT This test was developed and its performance characteristics determined by the [facility], [facility]. Female urine specimens tested by the [facility] [place] have not been cleared or approved by the U.S. Food and Drug Administration (FDA). The laboratory is regulated under the Clinical Laboratory Improvement Amendments (CLIA) as qualified to perform high-complexity testing. This test is used for clinical purposes. It should not be regarded as investigational or for research. Results based on detection/no detection of ribosomal RNA by amplified method. us Carmen Simeon MD LAB - MICROBIOLOGY ORDERABLES Final Result [facility] [address], [place] [address], [facility] [phone] * HIV-1 HIV-2 ANTIBODY + HIV P24 AG PANEL (09/24/2017 11:24 AM CDT) [facility] HIV1/2 Ab + P24 Ag Non Reactive Non Reactive 09/24/2017 12:18 PM CDT [facility] Blood BLOOD SPECIMEN / Unknown Lab Venipuncture / Unknown 09/24/2017 11:24 AM CDT 09/24/2017 11:27 AM CDT Narrative [facility] - 09/24/2017 12:18 PM CDT No Laboratory evidence of HIV infection. us Carmen Simeon MD LAB - CHEMISTRY ORDERABLES Fi nal Result [facility] [address] [place] [address] from Last 3 Months or Most Recently Relevant to Health Maintenance Advance Directives * Full Code (Latest Code Status on File) Date Activated Date Inactivated Comments 09/23/2017 4:52 PM 09/24/2017 5:57 PM
--- OUTSIDE RECORDS SUMMARY | 2024-12-19 10:43 | XMS_ITS | Referral Summary ---
Author Organization [facility] Address [address] [place] [address] Care Team Providers Care Tile Grinder Name Role Phone Cydney Perez MD Primary Care Provider [phone] Encounters Date Type Department Care Team Description 10/20/2024 Results Follow-Up [facility] Primary Care at [address] [address] Sonia Simmons MA Thyroid Function [place], CBC with auto differential, Comprehensive metabolic panel, Additional followed-up results: 2 10/16/2024 Orders Only [facility] Residency Clinic at [address] [address] Cydney Perez MD Abnormal imaging of thyroid (Primary Dx) 10/16/2024 Orders Only [facility] Residency Clinic at [address] [address] Cydney Perez MD Abnormal imaging of thyroid (Primary Dx) 10/16/2024 11:30 AM CDT Lab [address] Abnormal imaging of thyroid; Low weight 10/16/2024 10:30 AM CDT Office Visit [facility] Residency Clinic at [address] [address] Cydney Perez MD Abnormal imaging of thyroid (Primary Dx); Low weight; Episodic tension-type headache, not intractable; Family history of type 1 diabetes mellitus; Vaping nicotine dependence, non-tobacco product; Marijuana use 09/30/2024 1:05 PM CDT - 09/30/2024 2:55 PM CDT Emergency [facility] Emergency Department [facility] [place] [address] Cervical strain, acute, initial encounter (Primary Dx); [...] 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 Gender Identity Not on file Sexual Orientation [...] LAB BLOOD ORDERABLES Sharri mckinney Result MAGALIE [facility] 1 [facility] [place] [address] * (ABNORMAL) Differential, auto (10/16/2024 11:31 AM [...] Sharri l Result MAGALIE CLAYTON ([place]) 1 [facility] [place] [address] * Thyroid Function [place] (10/16/2024 11:31 AM CDT) TSH 0.90 0.30 - 4.20 mcIUnit/mL Blood 10/16/2024 11:3 1 AM CDT 10/16/2024 1:11 PM CDT Cydney Perez MD LAB BLOOD ORDERABLES Sharri l Result [facility] ([place]) 1 [facility] [place] [address] * (ABNORMAL) CBC with auto differential (10/16/2024 11:31 AM CDT) Pathologist [facility] WBC 10.87(H) 3.80 - 9.90 K/cumm Hgb [...] ORDERABLES Sharri l Result Performing Organization Address City/[facility]/ZIP Co de Phone Number [facility] ([place]) 1 [facility] [place] [address] * (ABNORMAL) Comprehensive metabolic panel (10/16/2024 11:31 [...] 76 70 - 199 mg/dL [facility] ([place]) Comment: Interpretive Data Fasting glucose >/= 126 [...] Sharri l Result [facility] ([place]) 1 [facility] [place] [address] * CT Cervical Spine WO Contrast (09/30/2024 [...] Mala Ayers D.O. PS: PS Report ID: [id number] Reading Location: [id number] Procedure Note Mala Ayers, DO - 09/30/2024 [...] Mala Ayers D.O. PS: PS Report ID: [id number] Reading Location: [place] [address] PROCEDURES Sharri mckinney Result from Last [address] [facility] Member Subscriber Plan / Payer (Ef fective 2023-Present) Name:StarksYue Relation to Subscriber:Child Name:DANIEL ANGULO Date of :1978 Address: [address] [place] [address] [place] [address] Payer ID:[id number] (IC) Type:[facility] HMO/PPO Address: [address] [address] [place] [address] Care Teams Tile Grinder Relationship Specialty Start Date End Date Cydney Perez MD [address] [place] [address] [place] [id number] PCP - General Family Medicine 10/16/24
--- OUTSIDE RECORDS SUMMARY | 2024-12-19 10:43 | XMS_ITS | Encounter Summary ---
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
--- OUTSIDE RECORDS SUMMARY | 2024-12-19 10:43 | XMS_ITS | Clinical Summary ---
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 No red flag symptoms including acute neurological [...] Department Care Team Description 10/20/2024 Results Follow-Up [facility] Primary Care at [address] [place] [phone] Sonia Simmons MA Thyroid Function [place], CBC with auto differential, Comprehensive metabolic panel, Additional followed-up results: 2 10/16/2024 11:30 AM CDT Lab [address] Abnormal imaging of thyroid; Low weight 10/16/2024 10:30 AM CDT Office Visit [facility] Residency Clinic at [address] [place] [phone] Cydney Perez MD Abnormal imaging of thyroid (Primary Dx); Low weight; Episodic tension-type headache, not intractable; Family history of type 1 diabetes mellitus; Vaping nicotine dependence, non-tobacco product; Marijuana use 10/16/2024 Orders Only [facility] Residency Clinic at [address] [place] [address] Cydney Perez MD Abnormal imaging of thyroid (Primary Dx) 10/16/2024 Orders Only [facility] Residency Clinic at [address] [place] [address] Cydney Perez MD Abnormal imaging of thyroid (Primary Dx) 09/30/2024 1:05 PM CDT - 09/30/2024 2:55 PM CDT Emergency [facility] Emergency Department [address] [place] [phone] Cervical strain, acute, initial encounter (Primary Dx); [...] on file 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 Gender Identity Not on file Sexual Orientation [...] Sharri hank Result MAGALIE ARNOLD ([place]) 1 [facility] Department [place] [address] * (ABNORMAL) Differential, auto (10/16/2024 11:31 AM [...] ORDERABLES Sharri l Result Performing Organization Address City/[facility]/ZIP Co de Phone Number MAGALIE ARNOLD ([place]) 1 [facility] [place] [address] * Thyroid Function [place] (10/16/2024 11:31 AM CDT) Pathologist [facility] TSH 0.90 0.30 - 4.20 mcIUnit/mL Blood 10/16/2024 11:3 1 AM CDT 10/16/2024 1:11 PM CDT Cydney Perez MD LAB BLOOD ORDERABLES Sharri l Result Performing Organization Address City/[facility] Co de Phone Number MAGALIE ARNOLD ([place]) 1 [facility] [place] [address] * (ABNORMAL) CBC with auto differential (10/16/2024 11:31 AM CDT) WBC 10.87(H) 3.80 - 9.90 K/cumm Hgb 15.5 11.9 - 15.5 g/dL [facility] Hct 45.8(H) 35.6 [...] RDW SD 45.4 35.7 - 48.1 fL [facility] ([place]) NRBC abs 0.00 0.00 - 0.01 K/cumm [facility] ([place]) Blood 10/16/2024 11:3 1 AM CDT 10/16/2024 1:11 PM CDT us Cydney Perez MD LAB BLOOD ORDERABLES Sharri l Result [facility] ([place]) 1 [facility] Department [place] [address] * (ABNORMAL) Comprehensive metabolic panel (10/16/2024 11:31 AM CDT) Sodium 138 135 - 145 mmol/L Potassium, pl 3.8 3.3 - 4.9 mmol/L [facility] ([place]) Chloride 99 97 - 110 mmol/L [facility]) CO2 27 22 - 32 mmol/L [facility] ([place]) Anion gap 12 2 - 15 mmol/L [facility] ([place]) BUN 11 6 - 25 mg/dL [facility] ([place]) Creatinine 0.59(L) 0.60 - 1.10 mg/dL [facility] ([place]) Glucose 76 70 - 199 mg/dL [facility] ([place]) Comment: Interpretive Data [...] Sharri mckinney Result [facility] ([place]) 1 [facility] Department [place] [address] * CT Cervical Spine WO Contrast (09/30/2024 [...] Mala Ayers D.O. PS: PS Report ID: [id number] Reading Location: [id number] Procedure Note Mala Ayers, DO - 09/30/2024 [...] Mala Ayers D.O. PS: PS Report ID: [id number] Reading Location: [id number] Maude VARGAS IMG CT PROCEDURES Sharri mckinney Result from Last 3 Months Insurance [facility] Care Teams Sawdust Machine Operator Relationship Specialty Start Date End Date Cydney Perez MD 2 [facility] [address] [address] PCP - General Family Medicine 10/16/24
--- NOTE | 2024-12-19 11:01 | ED_ITS ---
HPI - Female Genitourinary General Chief complaint: Vaginal Bleeding Stated complaint: irregular period Time Seen by Provider: 12/19/24 10:23 History of Present Illness HPI Narrative: 24-year-old female presents to the emergency department for abnormal vaginal bleeding. Patient states her LMP was 12/09/2024 and lasted 4-5 days. She then did not bleed for a few days until she developed light spotting 2 days ago which has progressed into with seems like another period. She states she had a similar event several years ago which was caused by urinary tract infection. She is endorsing some urinary frequency and low back pain. She denies any dysuria, hematuria, abdominal pain, nausea vomiting, fevers. No history of kidney stones. She denies vaginal discharge or concern for STDs. Related Data Allergies Allergy/AdvReac Type Severity Reaction Status Date / Time No Known Allergies Allergy Verified 11/19/24 11:09 Review of Systems 2 Review of Systems: All systems reviewed & are unremarkable except as noted in HPI and below PMFSH Past Medical History Medical History No active medical problems Family History Family History Other Diabetes mellitus Social History Social History Smoking status: Current every day smoker Tobacco type: e-cigarettes/vaping Alcohol intake: never Exam 2 Narrative: GENERAL: Well-appearing, well-nourished, and in no acute distress. HEAD: Normocephalic, atraumatic. EYES: EOMI. ENT: Nares clear, no rhinorrhea or epistaxis. Mucous membranes moist. NECK: Supple. CHEST: Clear to auscultation. No respiratory distress. HEART: Regular rate and rhythm. No murmur heard. Normal peripheral pulses. ABDOMEN: Soft, nontender, nondistended, normal active bowel sounds. : Deferred EXTREMITIES: Normal range of motion. No edema. SKIN: Warm, dry, no rash. NEURO: No focal deficits. Alert and oriented x3 Course Vital Signs Vital signs: Vital Signs Temperature 97.6 F 12/19/24 09:37 Pulse Rate 81 12/19/24 09:37 Respiratory Rate 18 12/19/24 09:37 Blood Pressure 124/69 12/19/24 09:37 Pulse Oximetry 100 12/19/24 09:37 Temperature 97.6 F 12/19/24 09:37 Pulse Rate 81 12/19/24 09:37 Respiratory Rate 18 12/19/24 09:37 Blood Pressure 124/69 12/19/24 09:37 Pulse Oximetry 100 12/19/24 09:37 MDM - Female Genitourinary MDM Narrative Medical decision making narrative: 24 y/o F presents to the emergency department for abnormal vaginal bleeding. Patient's LMP was 12/09/2024 and lasted approximately 4-5 days. She then did not have any bleeding for couple of days until she developed vaginal spotting 2 days ago that has progressed into a normal period flow. She denies any abdominal pain or fevers. She is reporting some urinary frequency and lower back pain. Patient is afebrile and nontoxic appearing resting comfortably in exam bed. Abdomen is soft and nontender. No CVA tenderness. Lab work shows mild leukocytosis of 12.5 with normal hemoglobin. Chemistries are unremarkable. UA with greater than 100 RBCs, 1+ leuk esterase, 21-50 white blood cells, 2+ bacteria. is negative. Coags are normal. Patient updated on results. She was given IM Toradol with improvement. I have very low suspicion for kidney stone clinically. Patient will be started on Keflex for UTI and advised to follow-up with her OBGYN. She was given strict ED return precautions. She is agreeable with the plan verbalized understanding. Discharged in stable condition. Lab Data 12/19/24 11:05 12/19/24 11:05 Labs: Lab Results 12/19/24 12/19/24 12/19/24 Range/Units 09:48 09:50 11:05 WBC 12.5 H (4.5-10.0) K/mm3 RBC 4.43 (4.2-5.4) M/mm3 Hgb 14.3 (12.0-15.0) g/dL Hct 43.4 (37.0-47.0) % MCV 98.0 (80-100) fl MCH 32.3 (26-34) pg MCHC 32.9 (32-36) g/dl RDW 12.2 (11.5-14.5) % Plt Count 189 (150-375) k/mm3 MPV 10.8 H (7.4-10.4) fl Immature Gran % (Auto) 0.4 (0-0.5) % Neut % (Auto) 76.4 H (45.5-73.1) % Lymph % (Auto) 16.3 L (18.3-44.2) % [place] % (Auto) 5.7 (2.6-8.5) % Eos % (Auto) 0.6 (0-4.4) % Baso % (Auto) 0.6 (0.2-1.2) % Lymph # (Auto) 2.03 (0.9-3.2) K/mm3 [place] # (Auto) 0.7 H (0.1-0.6) K/mm3 Eos # (Auto) 0.1 (0-0.3) K/mm3 Baso # (Auto) 0.1 (0.0-0.1) K/mm3 Abs Immat Gran (auto) 0.05 H (0.00-0.031) K/mm3 Absolute Neuts (auto) 9.5 H (1.3-6.7) K/mm3 Absolute Nucleated RBC 0.000 (0.0-0.012) K/mm3 Nucleated RBC % 0.0 (0.0-0.2) % PT 13.2 (11.1-14.7) Seconds INR 1.0 APTT 26.7 (22.3-36.8) Seconds Sodium 138 (137-145) mmol/L Potassium 4.0 (3.4-5.0) mmol/L Chloride 106 (98-107) mmol/L Carbon Dioxide 25 (22-30) mmol/L Anion Gap 7 (4-12) mmol/L BUN 9 (7-17) mg/dL Creatinine 0.60 L (0.7-1.0) mg/dL Estim Creat Clear Calc 84 ml/min Estimated GFR > 60 (59 - ) Glucose 89 (65-110) mg/dL Calcium 9.5 (8.4-10.2) mg/dL Total Bilirubin 0.4 (0.2-1.3) mg/dL AST 29 (14-36) U/L ALT 15 (6-35) U/L Alkaline Phosphatase 29 L (38-126) U/L Total Protein 7.2 (6.3-8.2) g/dL Albumin 4.6 (3.5-5.1) g/dL Urine Color Dark yellow (Yellow) Urine Appearance Turbid H (Clear) Urine pH 8.5 (5.0-9.0) Ur Specific Wade 1.019 (1.001-1.035) Urine Protein 2+ H (Negative) mg/dL Urine Glucose (UA) Negative (Negative) mg/dL Urine Ketones Trace H (Negative) mg/dL Ur Blood (Man) 3+ H (Negative) Urine Nitrate Negative (Negative) Urine Bilirubin 1+ H (Negative) Urine Urobilinogen 1.0 (<2.0) mg/dL Leukocyte Esterase Rfl 1+ H (Negative) NAVIN/UL Urine RBC >100 H (0-2) /hpf Urine WBC 21-50 H (0-3) /hpf Ur Squamous Epith Cells Occasional (Few) /hpf Urine Bacteria 2+ H /hpf Urine Casts 0-2 POC Urine HCG, Qual Negative (Negative) Discharge Plan Discharge Clinical Impression: Bleeding, uterine, dysfunctional, Abnormal urinalysis Patient Disposition: Home Condition: Stable Instructions: Antibiotic Form, Abnormal (Dysfunctional) Uterine Bleeding (ED), Urinary Tract Infection in Women (DC) Additional Instructions: You were evaluated in the emergency department for abnormal vaginal bleeding. You were found have urinary tract infection and started on antibiotics. Please take these as directed. Follow-up close with OBGYN. Return to the emergency department if you develop a fever, abdominal pain, flank pain, you are bleeding through 1 pad or tampon an hour, or other concerning symptoms. Patient Language: Lao Prescriptions: New cephalexin 500 mg capsule 500 mg PO Q6H Qty: 28 0RF No Action amoxicillin-pot clavulanate 875-125 mg tablet 1 tablet PO Q12H 7 Days Qty: 14 0RF Follow-up/Referrals: Beulah Lewis MD [Physician] - PHYSICIAN,SUPERVISOR NEWSPAPER DELIVERIES [Primary Care Provider] -
[2024-12-19 11:28] LABS: Hematocrit 43.4 % (37.0-47.0); Hemoglobin 14.3 g/dL (12.0-15.0); Immature Granulocyte Percent A 0.4 % (0-0.5); Lymphocytes Absolute Auto 2.03 K/mm3 (0.9-3.2); Mean Corpuscular HGB Conc 32.9 g/dl (32-36); Mean Corpuscular Hemoglobin 32.3 pg (26-34); Mean Corpuscular Volume 98.0 fl (80-100); Nucleated Red Blood Cells Absolute Auto 0.000 K/mm3 (0.0-0.012); Nucleated Red Blood Cells Perc 0.0 % (0.0-0.2); Platelet Count Result 189 k/mm3 (150-375); Red Blood Count 4.43 M/mm3 (4.2-5.4); White Blood Count 12.5 K/mm3 (4.5-10.0)
[2024-12-19 11:48] LABS: INR 1.0; Prothrombin Time 13.2 Seconds (11.1-14.7)
[2024-12-19 11:49] LABS: Alanine Aminotransferase 15 U/L (6-35); Albumin Level 4.6 g/dL (3.5-5.1); Alkaline Phosphatase 29 U/L (38-126); Anion Gap 7 mmol/L (4-12); Aspartate Amino Transferase 29 U/L (14-36); Bilirubin,Total 0.4 mg/dL (0.2-1.3); Blood Urea Nitrogen 9 mg/dL (7-17); Calcium 9.5 mg/dL (8.4-10.2); Carbon Dioxide 25 mmol/L (22-30); Chloride 106 mmol/L (98-107); Estimated CRCL calculation 84 ml/min; Estimated Glomerular Filt Rate > 60; Glucose 89 mg/dL (65-110); Partial Thromboplastin Time 26.7 Seconds (22.3-36.8); Potassium 4.0 mmol/L (3.4-5.0); Sodium 138 mmol/L (137-145); Total Protein 7.2 g/dL (6.3-8.2)
[2024-12-19] MEDS: CEPHALEXIN 500 MG CAPSULE PO (12:16)
== END 2024-12-19 12:28 | disposition home or self-care (01) ==
PROVIDERS: Emergency Medicine; Emergency Provider Physician Assistant
DX: N93.8 Other specified abnormal uterine and vaginal bleeding (principal); R82.998 Other abnormal findings in urine; F17.290 Nicotine dependence, other tobacco product, uncomplicated
CPT/HCPCS: 36415; 80053; 81001; 81025; 85025; 85610; 85730; 99283; A9270